=== PATIENT | female | born 1975 | race Caucasian/White ===

== ENCOUNTER 2024-08-14 23:46 | Emergency (ER) | payer BC, SELFPAY ==
[2024-08-14 23:49] VITALS: BP 176/102; PULSE 87; RESP 18; TEMP 36.6; O2SAT 97; BMI 54.6
[2024-08-15] MEDS: Gabapentin 300 MG Capsule PO (00:14)
[2024-08-15] MEDS: Ketorolac 30 MG/ML Syringe IM (00:14)
[2024-08-15] MEDS: Orphenadrine 60 MG/2 ML Ampul IM (00:15)
--- NOTE | 2024-08-15 00:34 | EX.ED.UPPERE ---
HPI History of Present Illness Chief Complaint: Upper Extremity Injury Informant: patient and spouse/S.O. Narrative Narrative: Patient is a 49-year-old female with past medical history of anxiety and depression. She states she has been dealing with the left arm pain along with paresthesias for quite some time and has been undergoing physical therapy secondary to this. She states that she feels the pain and paresthesias from the shoulder down to the fingers of the left arm/hand. She states that she typically can control the symptoms with [id number] Tylenol or Motrin. She reports there is been no recent excessive activity or trauma but that today the pain has not been controlled with her normal medication and she cannot sleep and therefore she presents for evaluation. [facility] Medical History Anxiety Depression Home Medications ?Medication ?Instructions ?Recorded ?Last Taken ?Type duloxetine 60 mg capsule,delayed 60 mg PO DAILY 08/14/24 Unknown History release gabapentin 300 mg capsule 300 mg PO TID 30 days #90 caps 08/15/24 Unknown Rx methocarbamol 500 mg tablet 1,000 mg (2 x 500 mg) PO 4X/DAY 08/15/24 Unknown Rx PRN Muscle pain/spasm 7 days #56 tabs Allergy/AdvReac Type Severity Reaction Status Date / Time Sulfa (Sulfonamide AdvReac Hives Verified 08/14/24 23:49 Antibiotics) Surgical History (Updated 08/14/24 @ 23:55 by Dominique Sharma) Hx of section Social History Smoking Status: Never smoker ROS ROS ED Constitutional Constitutional ED: Denies chills or fever(s) Eyes Eyes: Denies change in vision or diplopia ENT ENT ED: Denies sore throat Cardiovascular Cardiovascular: Denies chest pain Respiratory/Chest Respiratory/Chest: Denies cough or dyspnea Gastrointestinal Gastrointestinal: Denies abdominal pain, diarrhea, nausea or vomiting Genitourinary Genitourinary ED: Denies dysuria Musculoskeletal Musculoskeletal: Reports other Details: Positive left arm pain ; Denies back pain or neck pain Integumentary Denies Abrasions or rash Neurologic Neurologic: Reports paresthesias LUE; Denies headache(s) Hematologic/Lymphatic Hematologic/Lymphatic: Denies easy bleeding or easy bruising EXAM Physical Exam Const Vital Signs: 08/14/24 23:49 Temperature 97.9 F Temperature Source Oral Pulse Rate 87 Respiratory Rate 18 Blood Pressure 176/102 H Blood Pressure Mean 126 Pulse Ox 97 Oxygen Delivery Method Room Air Positive well nourished, well developed and obese General Appearance ED: well developed Nutritional Appearance: obese HEENT HEENT Narrative: Normocephalic atraumatic Eyes PERRL and EOMs intact bilaterally Eyes Narrative: No scleral icterus noted Neck full ROM and supple Neck Narrative: No bony deformity or step-off of the cervical spine No midline tenderness to palpation No meningeal signs Negative Spurling sign bilaterally Resp normal respiratory effort and clear to auscultation bilaterally Cardio regular rate and regular rhythm Cardio Narrative: Heart is regular rate and rhythm without murmurs rubs or gallop Radial and carotid pulses are equal and symmetric Extremity Extremity Narrative: Left upper extremity is neurovascularly intact; AIN/PIN are intact and normal. Active and passive range of motion is decreased secondary to pain. Compartments are soft and compressible going against compartment syndrome. Negative sulcus sign. No bony deformity or joint effusion. No overlying soft tissue changes to suggest trauma or infection Neuro oriented x3 and CN's II-XII intact bilaterally Sensorium / Orientation: alert Psych mental status grossly normal Skin no rashes or lesions noted MDM MDM MDM Narrative Medical decision making narrative: Patient arrived to the ER hypertensive but otherwise with stable vitals. She reported she has been dealing with left arm pain and paresthesias for quite some time and is currently in physical therapy secondary to this. She denies any recent trauma or excessive activity. Her exam does not suggest an underlying bony abnormality such as fracture or dislocation or contusion. Compartments are soft and compressible going against compartment syndrome. She does not have any findings to suggest a soft tissue infection such as cellulitis or abscess. She is neurovascularly intact going against arterial occlusion and there is no asymmetric swelling going against upper extremity DVT. History and exam is most consistent with cervical radiculopathy. As MRI is a study of choice I do not feel that a CT scan would change any treatment options at this time. Therefore we will forego the CT imaging and simply treat the patient with gabapentin Toradol and Norflex. On reevaluation patient reports that the symptoms are now at baseline/bearable and therefore she will be prescribed gabapentin and Robaxin for home and can follow-up with her family doctor to discuss outpatient MRI to further delineate the cause of her symptoms History & Record Review Discussion w/independent historian: Patient and Significant other Discharge Plan Triage Chief Complaint: Upper Extremity Injury ED Provider: Robert Ayala Dx/Rx/DC Orders Clinical Impression: Cervical radiculopathy, Anxiety and depression Instructions: Cervical Radiculopathy Prescriptions: New gabapentin 300 mg capsule 300 mg PO TID 30 Days Qty: 90 0RF methocarbamol 500 mg tablet 1,000 mg PO 4X/DAY PRN (Reason: Muscle pain/spasm) 7 Days Qty: 56 1RF No Action duloxetine 60 mg capsule,delayed release(DR/EC) 60 mg PO DAILY Primary Care Provider: XENIA JC Referrals: XENIA JC [Other] Activity Restrictions/Additional Instructions: Please continue to take Tylenol and or Motrin for pain control and add the gabapentin and Robaxin as directed for further symptom improvement. Talk to your family doctor about a MRI of your neck and left shoulder to further delineate the cause of your recurrent symptoms and return to the ER should you have any further concerns Print Language: Turkish Disposition Disposition: Home, Self Care
[2024-08-15 00:51] VITALS: BP 143/98; PULSE 71; RESP 18; TEMP 36.6; O2SAT 99
== END 2024-08-15 00:56 | disposition home or self-care (01) ==
PROVIDERS: Emergency Provider Emergency Medicine; Visit Provider Emergency Medicine
DX: M54.12 Radiculopathy, cervical region (principal); F41.9 Anxiety disorder, unspecified; F32.A Depression, unspecified; E66.9 Obesity, unspecified
CPT/HCPCS: 96372; 99282